=== PATIENT | female | born 1950 | race African-American/Black ===

== ENCOUNTER 2018-05-29 08:30 | Inpatient (IN) | payer BC, MEDICARE ==
[~2018-05-29] VITALS: Ht 160 cm; Wt 100.9 kg
[2018-05-29] MEDS ORDERED: SODIUM CHLORIDE 0.9% 1,000 ML IV ONE (08:39)
[2018-05-29] MEDS ORDERED: LABETALOL 5MG/ML SYR 20 MG/4 ML SYRINGE IV ONE (09:00)
[2018-05-29 09:09] LABS: INR 1.1; PARTIAL THROMBOPLASTIN TIME 26.6 sec (23.4-31.0); PROTHROMBIN TIME 10.8 sec (9.1-11.1)
[2018-05-29 09:11] LABS: BASOPHILS % 1.3 % (0.0-2.0); EOSINOPHILS % 7.5 % (0.0-5.0); HEMATOCRIT. 48.3 % (36.0-48.0); LYMPHOCYTES % 40.3 % (20.0-50.0); MEAN CORPUSCULAR HEMOGLOBIN 28.8 pg (28.0-32.0); MEAN CORPUSCULAR VOLUME 87.2 fL (81.0-99.0); MEAN PLATELET VOLUME 9.4 fl (7.4-10.4); MONOCYTES % 6.5 % (2.0-8.0); NEUTROPHILS % 44.4 % (40.0-76.0); PLATELET 299 x1000/uL (130-400); RED BLOOD CELL COUNT 5.54 mill/uL (4.2-5.4); RED CELL DISTRIBUTION WIDTH 15.6 % (11.6-14.6)
[2018-05-29 09:16] LABS: CHLORIDE 107 mEq/L (98-107)
[2018-05-29 09:22] LABS: ETHANOL BLOOD < 10 mg/dL
[2018-05-29 09:26] LABS: CREATINE KINASE 82 IU/L (26-192); LDL CHOLESTEROL 116 mg/dL (5-100)
[2018-05-29] MEDS ORDERED: IOHEXOL-350 100 ML BOTTLE ONE (12:05)
[2018-05-29] MEDS ORDERED: ASPIRIN 325MG TABLET PO ONE (13:00)
[2018-05-29 17:08] VITALS: BP 188/97
[2018-05-29] MEDS ORDERED: DIPHENHYDRAMINE 50MG/ML VIAL IV PRN (17:15)
[2018-05-29] MEDS ORDERED: ONDANSETRON HCL 4MG/2ML INJ IV PRN (17:15)
[2018-05-29 20:00] VITALS: BP 143/63
[2018-05-29] MEDS: IBUPROFEN 400MG TABLET PO PRN (21:36)
[2018-05-29] MEDS: DEXT 5%/0.45% NACL 1000ML 1,000 ML IV SCH (21:37)
[2018-05-29] MEDS ORDERED: LORAZEPAM 2MG/ML CPJ IV PRN (23:45)
[2018-05-30] VITALS: BP 147/62
[2018-05-30 04:00] VITALS: BP 146/62
[2018-05-30 08:00] VITALS: BP 177/89
[2018-05-30] MEDS: ASPIRIN 325MG EC TABLET PO SCH (09:55)
[2018-05-30] MEDS: ENOXAPARIN 100MG/ML SYR SUBCUT SCH ×2 (09:55→21:49)
[2018-05-30 12:00] VITALS: BP 198/93
[2018-05-30] MEDS: CLOPIDOGREL 75MG TABLET PO SCH (12:01)
[2018-05-30] MEDS: DEXT 5%/0.45% NACL 1000ML 1,000 ML IV SCH (12:01)
[2018-05-30] MEDS: LORAZEPAM 2MG/ML CPJ IV NR ×2 (12:55→21:21)
[2018-05-30 14:56] LABS: T4 FREE 0.81 ng/dL (0.76-1.46)
[2018-05-30 15:23] LABS: FOLIC ACID (FOLATE) SERUM >20 ng/mL ng/mL (>5.38)
[2018-05-30 15:34] LABS: VITAMIN B12 SERUM 744 pg/mL (211-911)
[2018-05-30 16:00] VITALS: BP 171/95
[2018-05-30 20:00] VITALS: BP 179/71
[2018-05-30] MEDS: ATORVASTATIN CALCIUM 40MG TABLET PO SCH (21:21)
[2018-05-31 08:00] VITALS: BP 152/79
[2018-05-31] MEDS: ASPIRIN 325MG EC TABLET PO SCH (08:52)
[2018-05-31] MEDS: CLOPIDOGREL 75MG TABLET PO SCH (08:52)
[2018-05-31] MEDS: DEXT 5%/0.45% NACL 1000ML 1,000 ML IV SCH (08:54)
[2018-05-31] MEDS: ENOXAPARIN 100MG/ML SYR SUBCUT SCH ×2 (11:16→21:09)
[2018-05-31 12:00] VITALS: BP 168/78
[2018-05-31 16:00] VITALS: BP 146/58
[2018-05-31 20:00] VITALS: BP 150/85
[2018-05-31] MEDS: ATORVASTATIN CALCIUM 40MG TABLET PO SCH (21:08)
[2018-05-31] MEDS: IBUPROFEN 400MG TABLET PO PRN (21:10)
[2018-05-31] MEDS: CLONIDINE 0.1MG TABLET PO PRN (23:56)
[2018-06-01] VITALS (7 sets, daily range): BP systolic 142–200; BP diastolic 61–90
[2018-06-01] MEDS ORDERED: LOSARTAN POTASSIUM 50 MG TABLET PO SCH ×3 (09:00→21:00)
[2018-06-01] MEDS: ASPIRIN 325MG EC TABLET PO SCH (09:53)
[2018-06-01] MEDS: CLOPIDOGREL 75MG TABLET PO SCH (09:53)
[2018-06-01] MEDS: ENOXAPARIN 100MG/ML SYR SUBCUT SCH ×2 (09:59→22:40)
[2018-06-01] MEDS ORDERED: MAGNESIUM CITRATE 300ML SOLUTION PO NR (11:00)
[2018-06-01] MEDS: CLONIDINE 0.1MG TABLET PO PRN ×2 (12:38→19:53)
[2018-06-01] MEDS: IBUPROFEN 400MG TABLET PO PRN (18:59)
[2018-06-01] MEDS ORDERED: AMLODIPINE 2.5MG TABLET PO SCH ×2 (19:00→21:00)
[2018-06-01] MEDS: ATORVASTATIN CALCIUM 40MG TABLET PO SCH (19:53)
== END 2018-06-01 22:45 | disposition home or self-care (01) | DRG 65 ==
LOC: ER 08:30 → 5WST 13:22 → EDBEDREQ 13:25 → EDBEDREQSVC 13:26 → EDBEDREQ 13:26 → ENRESERV 14:01
PROVIDERS: ADMIT Internal Medicine; ATTEND Internal Medicine
DX: I63.9 Cerebral infarction, unspecified (principal); G81.94 Hemiplegia, unspecified affecting left nondominant side; I10 Essential (primary) hypertension; I25.10 Atherosclerotic heart disease of native coronary artery without angina pectoris; E78.00 Pure hypercholesterolemia, unspecified; R47.01 Aphasia; R13.10 Dysphagia, unspecified; R47.1 Dysarthria and anarthria; E11.65 Type 2 diabetes mellitus with hyperglycemia; E66.01 Morbid (severe) obesity due to excess calories; R29.810 Facial weakness; Z96.642 Presence of left artificial hip joint; Z96.651 Presence of right artificial knee joint; G89.29 Other chronic pain; M19.90 Unspecified osteoarthritis, unspecified site; M54.5 Low back pain; K21.9 Gastro-esophageal reflux disease without esophagitis; Z72.0 Tobacco use; Z82.49 Family history of ischemic heart disease and other diseases of the circulatory system; Z83.3 Family history of diabetes mellitus; Z91.14 Patient's other noncompliance with medication regimen; Z95.1 Presence of aortocoronary bypass graft; Z98.61 Coronary angioplasty status; Z88.0 Allergy status to penicillin; Z68.39 Body mass index [BMI] 39.0-39.9, adult
CPT/HCPCS: 36415; 70496; 70498; 70551; 71045; 80061; 80320; 82550; 82607; 82746; 82962; 83036; 83721; 83735; 83880; 84439; 84443; 84481; 84484; 92610; 93005; 93306; 93970; 96360; 96361; 97162; 97166; 99291; J1650; J2060; J7030; Q9967; G0480